=== PATIENT | male | born 1960 | race Caucasian/White ===

== ENCOUNTER → 2017-02-25 | Outpatient (CLI) | payer OTHER ==
[~2017-02-25] MED LIST: OPTIRAY 320 IV PRN
--- NOTE | 2017-02-25 13:29 | DIAGNOSTIC IMAGING REPORT ---
ABDOMEN COMBO CLINICAL HISTORY: 56 years-old Male presenting with RUQ MASS. TECHNIQUE: Multidetector CT of the abdomen was performed after the administration of intravenous contrast. IV contrast: None. COMPARISON: None. CT DOSE: The estimated cumulative dose is 1225.90 mGycm. FINDINGS: [employer] topogram: Unremarkable. Lung bases: Lung bases clear. No pericardial or pleural effusion. Liver: Normal morphology. No evidence of hepatic steatosis. No liver lesion. Patent hepatic vasculature. Accessory left hepatic artery arising the left gastric artery. Biliary: No intrahepatic or extrahepatic biliary ductal dilatation. Normal gallbladder. Pancreas: Normal. Spleen: Normal. Adrenal glands: Normal. Kidneys and ureters: Normal. No nephrolithiasis. No hydronephrosis. Gastrointestinal tract: Dilatation and mucosal hyperemia of the appendix. No significant periappendiceal inflammatory change. Possible trace peritoneal thickening of the right paracolic gutter. No bowel obstruction. Peritoneal cavity: No free fluid or intraperitoneal gas. Vasculature: Atherosclerosis of the normal caliber abdominal aorta. Lymph nodes: No enlarged lymph nodes in the abdomen or pelvis. Abdominal wall: Normal. Musculoskeletal: Normal. IMPRESSION: 1. No right upper quadrant mass identified. 2. Dilated and hyperemic appendix. Correlate clinically for infectious symptoms or regional pain to exclude appendicitis. Given the absence of significant inflammatory change, differential considerations including a mucocele of the appendix is favored. Electronically signed by: Doe Ashraf M.D. 02/25/2017 1:11 PM Dictated Date/Time: 02/25/2017 12:58 PM
== END | disposition home or self-care (01) ==
LOC: C.CTS 11:34
PROVIDERS: ATTEND Family Medicine
DX: R19.01 Right upper quadrant abdominal swelling, mass and lump (principal); K46.9 Unspecified abdominal hernia without obstruction or gangrene